=== PATIENT | female | born 1975 | race Caucasian/White ===

== ENCOUNTER 2017-01-12 10:22 | Emergency (ER) | payer MEDICAID, OTHER ==
[~2017-01-12] VITALS: Ht 162.6 cm; Wt 90.0 kg
[2017-01-12 10:33] VITALS: Ht 162.6 cm; Wt 90.0 kg
--- NOTE | 2017-01-12 11:43 | ERD ---
ER Documentation Chief Complaint Date/Time DATE: 01/12/17 TIME: 11:43 Chief Complaint anxiety x today HPI 41-year-old female with history of anxiety, presents to the emergency department, complaining of worsening of symptoms including nervousness, irritability, lack of sleep, for the last 2 days. The patient decided that the cause of her anxiety is most likely secondary to a court order received by mail yesterday. Currently, the patient is working with her social science teacher and has an appointment with her psychiatrist on January 26. The patient refers include compliant with her medication that include Prozac and Seroquel. The patient denies any suicidal ideation and homicidal ideation ROS All systems reviewed and are negative except as per history of present illness. Medications Home Meds Active Scripts Lorazepam* (Ativan*) 0.5 Mg Tablet, 0.5 MG PO Q8H Y for ANXIETY for 5 Days, #15 TAB Prov:DEANNE MERCHANT MD 01/12/17 Allergies Allergies: Coded Allergies: Penicillins (Verified Allergy, Mild, 01/12/17) PMhx/Soc Medical and Surgical Hx: pt denies Medical Hx, pt denies Surgical Hx Hx Miscellaneous Medical Probl: Yes (ANXIETY) Hx Alcohol Use: No Hx Substance Use: No Hx Tobacco Use: No Smoking Status: Never smoker Physical Exam Vitals Vital Signs Date Time Temp Pulse Resp B/P Pulse Ox O2 Delivery O2 Flow Rate FiO2 01/12/17 10:33 98.7 93 20 145/93 98 Physical Exam Const: [] Head: Atraumatic Eyes: Normal Conjunctiva ENT: Normal External Ears, Nose and Mouth. Neck: Full range of motion..~ No meningismus. Resp: Clear to auscultation bilaterally Cardio: Regular rate and rhythm, no murmurs Neur: Awake and alert. Psych: Patient looks anxious but alert, oriented and cooperative Procedures/MDM Patient with a history of anxiety disorder, on disability status, presents with a worsening of anxiety symptoms. No suicidal homicidal ideation. With social science teacher on board and goes to a mental health clinic. Patient compliant with her medications and treatment, pretty stable at this time to be discharged on lorazepam as needed, instructions and warnings in regards of benzodiazepines discussed with patient in Korean. She was advised to return to the emergency department for any worsening of symptoms, SI/HI. Departure Diagnosis: Primary Impression: Anxiety Condition: Stable MCCANN-ROACH,DEANNE MD Jan 12, 2017 11:43
[2017-01-12] MEDS ORDERED: LORA-441 PO (11:46)
== END 2017-01-12 12:18 | disposition home or self-care (01) ==
LOC: FTE 10:22
DX: F41.9 Anxiety disorder, unspecified (principal)
CPT/HCPCS: 99283

== ENCOUNTER 2017-04-14 13:32 | Emergency (ER) | END 2017-04-14 16:02 | disposition home or self-care (01) ==